=== PATIENT | female | born 1990 | race Two or more races ===

== ENCOUNTER 2021-06-08 11:08 | Outpatient (CLI) | payer OTHER | END 2021-06-08 11:18 | disposition home or self-care (01) | LOC: LAB 11:08 | DX: D50.0 Iron deficiency anemia secondary to blood loss (chronic) (principal); E03.8 Other specified hypothyroidism; N30.00 Acute cystitis without hematuria; I10 Essential (primary) hypertension; Z83.3 Family history of diabetes mellitus; E78.89 Other lipoprotein metabolism disorders; N28.89 Other specified disorders of kidney and ureter; Z12.11 Encounter for screening for malignant neoplasm of colon; N39.0 Urinary tract infection, site not specified; E55.9 Vitamin D deficiency, unspecified ==

== ENCOUNTER 2022-01-10 10:13 | Outpatient (CLI) | payer OTHER | END 2022-01-10 10:21 | disposition home or self-care (01) | LOC: LAB 10:13 | DX: N39.0 Urinary tract infection, site not specified (principal); Z13.1 Encounter for screening for diabetes mellitus; E66.09 Other obesity due to excess calories ==

== ENCOUNTER 2022-01-10 11:14 | Outpatient (CLI) | payer OTHER | END 2022-01-10 11:20 | disposition home or self-care (01) | LOC: SONOGRAMA 11:14 | DX: R10.9 Unspecified abdominal pain (principal); R10.30 Lower abdominal pain, unspecified; N94.6 Dysmenorrhea, unspecified; N83.00 Follicular cyst of ovary, unspecified side; N92.0 Excessive and frequent menstruation with regular cycle; K59.04 Chronic idiopathic constipation ==